=== PATIENT | male | born 1975 | race Caucasian/White ===

== ENCOUNTER 2023-04-20 12:34 | Emergency (ER) | payer BC, OTHER ==
[~2023-04-20] VITALS: Ht 193 cm; Wt 75.2 kg
[2023-04-20 12:36] VITALS: BP 133/99; TEMP 97.9; O2SAT 100
[2023-04-20] MEDS ORDERED: CHOL4POW26 PO (13:02)
== END 2023-04-20 14:48 | disposition home or self-care (01) ==
LOC: M ED 12:34
DX: S01.01XA Laceration without foreign body of scalp, initial encounter (principal); W22.8XXA Striking against or struck by other objects, initial encounter; Y92.89 Other specified places as the place of occurrence of the external cause; Y93.89 Activity, other specified; Y99.8 Other external cause status; Z79.899 Other long term (current) drug therapy